=== PATIENT | male | born 1960 | race African-American/Black ===

== ENCOUNTER 2018-09-28 23:39 | Emergency (ER) | payer OTHER ==
--- NOTE | 2018-09-29 00:16 | RAD ---
RADIOGRAPH CHEST ONE VIEW: DATE: 09/29/2018 HISTORY: 58-year-old male with chest pain FINDINGS: There are no airspace densities, pulmonary edema, pneumothorax, or cardiomegaly. The lateral costophr enic angles are sharp. IMPRESSION: No acute cardiopulmonary findings.
[2018-09-29] MEDS ORDERED: Aspirin 325 MG TAB ONE (02:54)
[2018-09-29 03:08] LABS: #Lymphocytes 0.7 thou/uL (1.20-3.40); #Monocytes 0.3 thou/uL (0.11-0.59); #Neutrophils 2.8 thou/uL (1.40-6.50); %Basophils 0.6 % (0.0-1.0); %Eosinophils 1.2 % (0.0-10.0); %Lymphocytes 17.3 % (21.0-51.0); Hemoglobin 12.4 g/dL (14.0-18.0); Mean Corpuscular Hemoglobin 29.5 pg (27.0-31.0); Mean Corpuscular Volume 89.5 fL (78.0-98.0); Mean Platelet Volume 9.4 fL (7.4-10.4); Platelet Count 150 thou/uL (130-400); RBC Distribution Width 13.4 % (11.5-14.5); White Blood Cell (WBC) Count 3.8 thou/uL (4.8-10.8)
[2018-09-29 04:03] LABS: ALT (SGPT) 16 U/L (8-55); AST (SGOT) 31 U/L (5-34); Albumin 3.4 g/dL (3.5-5.0); Alkaline Phosphatase 81 U/L (40-150); Anion Gap 12 mmol/L (10-20); BUN (Urea Nitrogen) 16 mg/dL (8.4-25.7); Bilirubin, Total 0.5 mg/dL (0.2-1.2); CK (CPK) 119 U/L (30-200); Calc. Creatinine Clearance 0 mL/min (70-130); Calcium 9.3 mg/dL (7.8-10.44); Carbon Dioxide 25 mmol/L (22-29); Chloride 104 mmol/L (98-107); Estimated GFR-MDRD 73; Globulin 4.3 g/dL (2.4-3.5); Glucose 82 mg/dL (70-105); Potassium 3.7 mmol/L (3.5-5.1); Protein, Total 7.7 g/dL (6.0-8.3); Sodium 137 mmol/L (136-145)
--- NOTE | 2018-09-29 07:18 | CT ---
PRELIMINARY REPORT/[facility]/EMERGENCY AFTER HOURS PROCEDURE: EXAM: CT Head Without Contrast EXAM DATE/TIME: 09/29/2018 12:24 AM CLINICAL HISTORY: 58 years old, male; Signs and symptoms; Numbness / paresthesia; Patient HX: 58 y/o m, with h/o HTN, migraines, presents to ED C/O inability to move L hand. PT reports he awoke at 0600 this morning with loss of strength in his hand. Per EMS, [facility] staff noted PT appears to be incr slow in speech today and also noted pupil reactivity sluggish. EMS notes pupils with nrml reactivity, however L hand with no radiation oncologist strength. En route, vss, gcs 15, PT able to follow commands and respond appropriately. PT is able to move remainder of lue, nrml gait. PT reports recent BELL, described as similar to h/o has with photophobia. TECHNIQUE: Imaging protocol: Axial computed tomography images of the head/brain without contrast. COMPARISON: No relevant prior studies available. FINDINGS: Limitations: Motion artifact limits this study. Brain: Focal wedge shaped areas low density involving noncontiguous right temporal and parietal lobes. Ventricles: Normal. No ventriculomegaly. Bones/joints: Unremarkable. No acute fracture. Sinuses: Visualized sinuses are unremarkable. No acute sinusitis. Mastoid air cells: Visualized mastoid air cells are unremarkable. No mastoid effusion. Soft tissues: Unremarkable. IMPRESSION: 1. Motion artifact limits this study. 2. Suspect right temporal and parietal lobe areas infarction, possibly acute vs early subacute in age . MRI recommended for better evaluation if clinically indicated. Thank you for allowing us to participate in the care of your patient. Dictated and Authenticated by: Milagros Mendez MD 09/29/2018 1:02 AM Central Time ([place] & [place]) FINAL REPORT EMERGENCY AFTER HOURS BRAIN CT WITHOUT IV CONTRAST: Date: 09/29/18 Time: 0026 hours FINDINGS/IMPRESSION: Abnormal low-attenuation changes in the posterior right temporal and parietal region suspicious for a cute-early subacute infarct changes. No mass or bleed. Follow-up MRI. This report is in agreement with preliminary report by Anastasiia. Transcribed Date/Time: 09/29/2018 8:00 AM
== END 2018-09-29 04:39 | disposition short-term general hospital (02) ==
LOC: ERS 23:39 → EEVIPCON 23:39 → ERS 09-29 04:39
DX: I63.9 Cerebral infarction, unspecified (principal); I10 Essential (primary) hypertension; Z79.899 Other long term (current) drug therapy
CPT/HCPCS: 70450; 71045; 80053; 82550; 84484; 85025; 93005